=== PATIENT | female | born 1985 | race American Indian/Alaskan Native ===

== ENCOUNTER 2020-08-26 12:33 | Outpatient (CLI) | payer BC, MEDICAID ==
[2020-08-26 13:10] VITALS: BP 124/68
[2020-08-26] MEDS ORDERED: LACTATED RINGERS 1,000 ML IV SCH (13:45)
[2020-08-26 14:17] LABS: Bacteria,Urine 1+ /HPF (Negative); Bilirubin,Urine NEG (Negative); Blood,Urine NEG (Negative); Color,Urine Yellow (Yellow); Mucus,Urine 2+ /HPF; Urobilinogen,Urine < 2.0 mg/dL (<2.0)
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
== END 2020-08-26 17:00 | disposition home or self-care (01) ==
LOC: TRG 12:33 → APU 12:36 → TRG 17:00
PROVIDERS: ATTEND Obstetrics & Gynecology
DX: Z34.93 Encounter for supervision of normal pregnancy, unspecified, third trimester (principal); Z3A.35 35 weeks gestation of pregnancy
CPT/HCPCS: 59025; 76815; 76819; 81001

== ENCOUNTER 2020-09-08 20:32 | Inpatient (IN) | payer BC, MEDICAID ==
[2020-09-08] MEDS ORDERED: OXYTOCIN 10 UNIT/1 ML INJ IM PRN (21:52)
[2020-09-08] MEDS ORDERED: LOPERAMIDE 2 MG CAP PO PRN (21:52)
[2020-09-08] MEDS ORDERED: LIDOCAINE (2%) 20 MG/1 ML VIAL 20 ML MDV INFILTRATI ONE (21:52)
[2020-09-08] MEDS ORDERED: MINERAL OIL 30 ML ORAL LIQD PO PRN (21:52)
[2020-09-08] MEDS ORDERED: ePHEDrine SULFATE 50 MG/1 ML INJ IV PRN (21:52)
[2020-09-08] MEDS ORDERED: CARBOPROST TROMETHAMINE 250 MCG/1 ML INJ IM PRN (21:52)
[2020-09-08] MEDS ORDERED: AMPICILLIN/NS 2 GM/100 ML 2 GM/100 ML BAG IV ONE (21:52)
[2020-09-08] MEDS ORDERED: NALOXONE 0.4 MG/1 ML INJ IV PRN (21:52)
[2020-09-08] MEDS ORDERED: TERBUTALINE 1 MG/1 ML INJ SUB-Q PRN (21:52)
[2020-09-08] MEDS ORDERED: BUTORPHANOL 2 MG/1 ML INJ IV PRN ×2 (21:52)
[2020-09-08] MEDS ORDERED: miSOPROStol 200 MCG TAB PR PRN (21:52)
[2020-09-08] MEDS ORDERED: ONDANSETRON 4 MG/2 ML INJ IV PRN (21:52)
[2020-09-08] MEDS ORDERED: OXYTOCIN DRIP 30 UNITS/500 ML BAG IV SCH (22:00)
--- NOTE | 2020-09-08 22:01 | History and Physical Report ---
History of Present Illness Date of examination: 09/08/20 Date of admission: 09/08/20 20:32 Chief complaint: scheduled induction History of present illness: Pt is a 35 year old -[place] female primigravida MONI 09/29/20 at 37w0d who presents for scheduled induction of labor secondary to gestational hypertension. She denies contractions, vaginal bleeding or leakage of fluid. She has had care at [facility] since 15 wks with comanagement by MFM secondary to morbid obesity, advanced maternal age, and glucose intolerance. She is GBS positive. Past History Past Medical History: hypertension (gestational hypertension per HPI ), other (morbid obesity ) Past Surgical History: other (eye surgery at age 2; obesity) Family/Genetic History: other (Rheumatoid Arthritis ) Social history: no significant social history - Obstetrical History Expected Date of Delivery: 09/29/20 Actual Gestation: 37 Week(s) 0 Day(s) : 1 Medications and Allergies Allergies Allergy/AdvReac Type Severity Reaction Status Date / Time No Known Allergies Allergy Unverified 08/26/20 13:33 Home Medications Medication Instructions Recorded Confirmed Last Taken Type Pnv No.121/Iron/Folic Acid 1 tab PO DAILY 09/08/20 09/08/20 09/08/20 History [ Multivitamin Tablet] Active Meds: Active Medications Dinoprostone (Dinoprostone 10 Mg Vag Supp) 10 mg VG ONCE ONE Stop: 09/08/20 22:53 Review of Systems All systems: negative - Vital Signs Vital signs: Vital Signs Pulse BP 126 H 140/73 09/08/20 20:57 09/08/20 20:57 Temp Pulse Resp BP Pulse Ox 98.6 F 126 H 18 140/73 09/08/20 21:16 09/08/20 20:57 09/08/20 21:16 09/08/20 20:57 - Physical Exam Breasts: Positive: deferred Abdomen: Positive: soft (obese gravid ) Uterus: Positive: enlarged (gravid ) Extremities: Positive: edema (trace ) - Obstetrical FHR: auscultation normal Uterine Contraction Monitor Mode: External Uterine Contraction Pattern: Absent Uterine Tone Measurement Phase: Resting Results All other labs normal. Assessment and Plan A: IUP at 37w0d Gestational Hypertension Morbid Obesity Advanced Maternal Age Glucose Intolerance GBS Positive P: Admit to labor and delivery Routine admission and PIH labs Cervical ripening with cervidil Ampicillin for GBS prophylaxis Closely monitor maternal and status
[2020-09-08 22:26] LABS: Hematocrit 34.3 % (30.3-42.9); Hemoglobin 11.6 gm/dl (10.1-14.3); Mean Corpuscular HGB Conc 34 % (30-34); Mean Corpuscular Volume 86 fl (79-97); Platelet Count 245 K/mm3 (140-440); Red Blood Count 3.98 M/mm3 (3.65-5.03); Red Cell Distribution Width 15.4 % (13.2-15.2)
[2020-09-08 22:43] LABS: Alanine Aminotransferase 26 units/L (7-56); Uric Acid 3.3 mg/dL (3.5-7.6)
[2020-09-08] MEDS ORDERED: DINOPROSTONE 10 MG VAG SUPP VG ONE ×2 (22:52→23:52)
[2020-09-08] MEDS: LACTATED RINGERS 1,000 ML IV SCH (23:30)
[2020-09-09] MEDS ORDERED: AMPICILLIN/NS 1 GM/50 ML 1 GM/50 ML BAG IV SCH (02:00)
[2020-09-09] MEDS: LACTATED RINGERS 1,000 ML IV SCH ×2 (07:36→18:39)
[2020-09-09] MEDS: miSOPROStol 25 MCG TAB VG SCH ×2 (13:10→17:26)
--- NOTE | 2020-09-09 18:40 | Progress Note ---
Assessment and Plan - Patient Problems (1) Gestational hypertension Current Visit: Yes Status: Acute Plan to address problem: Continue induction as scheduled Subjective - Subjective Date of service: 09/09/20 Interval history: 35-year-old G1, P0 at 37+1 weeks admitted for induction of labor for gestational hypertension. The patient received Cervidil overnight and has currently been transitioned to Cytotec. She has not had any cervical change. Patient reports: no new complaints, no loss of fluid Objective - Vital Signs Vital Signs: Vital Signs - 12hr 09/09/20 09/09/20 09/09/20 07:23 07:25 18:30 Temperature 97.8 F Pulse Rate 94 H 78 78 Respiratory 20 Rate Blood Pressure 103/56 133/87 Blood Pressure 103/56 [Right] O2 Sat by Pulse 100 Oximetry - Labs Labs: Abnormal Labs 09/08/20 09/08/20 22:15 22:15 RDW 15.4 H Creatinine 0.5 L Uric Acid 3.3 L AST 51 H Lactate Dehydrogenase 534 H Laboratory Results - last 24 hr 09/08/20 09/08/20 09/08/20 22:15 22:15 22:15 WBC 10.9 RBC 3.98 Hgb 11.6 Hct 34.3 MCV 86 MCH 29 MCHC 34 RDW 15.4 H Plt Count 245 Creatinine 0.5 L Estimated GFR > 60 Uric Acid 3.3 L AST 51 H ALT 26 Lactate Dehydrogenase 534 H Syphilis IgG Antibody Nonreactive Coronavirus (PCR) Blood Type Antibody Screen 09/08/20 09/09/20 22:15 09:25 WBC RBC Hgb Hct MCV MCH MCHC RDW Plt Count Creatinine Estimated GFR Uric Acid AST ALT Lactate Dehydrogenase Syphilis IgG Antibody Coronavirus (PCR) Negative Blood Type B POSITIVE Antibody Screen Negative
--- NOTE | 2020-09-09 19:28 | Anesthesia Consultation ---
Anesthesia Consult and Med Hx Date of service: 09/09/20 - Airway Anesthetic Teeth Evaluation: Good ROM Head & Neck: Adequate Mental/Hyoid Distance: Adequate Mallampati Class: Class II Intubation Access Assessment: Probably Good - Pulmonary Exam CTA: Yes - Cardiac Exam Cardiac Exam: RRR - Pre-Operative Health Status ASA Pre-Surgery Classification: ASA3 Proposed Anesthetic Plan: Epidural - Cardiovascular System Hx Hypertension: Yes - Central Nervous System Hx Seizures: No Hx Psychiatric Problems: No - Endocrine Hx Renal Disease: No Hx Hypothyroidism: No Hx Hyperthyroidism: No - Hematic Hx Anemia: No Hx Sickle Cell Disease: No - Other Systems Hx Alcohol Use: No Hx Obesity: Yes
[2020-09-09] MEDS ORDERED: NALOXONE 2 MG/2 ML INJ IV PRN (19:30)
[2020-09-09] MEDS ORDERED: ePHEDrine SULFATE 50 MG/1 ML INJ IV PRN (19:30)
[2020-09-09] MEDS ORDERED: fentaNYL-BUPIV 2 MCG/ML-0.125% 200 MCG/100 ML BAG EPIDURAL SCH (20:00)
[2020-09-09] MEDS: OXYTOCIN DRIP 30 UNITS/500 ML BAG IV SCH (23:00)
[2020-09-10] MEDS: LACTATED RINGERS 1,000 ML IV SCH ×2 (10:15→19:25)
--- NOTE | 2020-09-10 10:23 | Progress Note ---
Assessment and Plan Day 2 of induction at 37 weeks for gestational hypertension. No cervical change as yet. Blood pressure remains in normal range. Continue on low dose pitocin regimen. Subjective - Subjective Date of service: 09/10/20 Principal diagnosis: gestational hypertension Patient reports: contractions, no new complaints, no loss of fluid Objective - Vital Signs Vital Signs: Vital Signs - 12hr 09/09/20 09/10/20 09/10/20 23:04 00:00 01:49 Temperature 98.2 F Pulse Rate 76 72 Respiratory 18 Rate Blood Pressure 127/60 114/53 Blood Pressure [Right] 09/10/20 09/10/20 09/10/20 04:00 06:13 07:30 Temperature 98.2 F 98.1 F Pulse Rate 76 80 Respiratory 18 16 Rate Blood Pressure 126/67 Blood Pressure 128/55 [Right] 09/10/20 07:35 Temperature Pulse Rate 84 Respiratory Rate Blood Pressure 128/55 Blood Pressure [Right] - Exam Breasts: deferred Lungs: Clear to auscultation, Normal air movement Abdomen: Present: normal appearance, soft, normal bowel sounds Uterus: Present: normal, firm FHR: auscultation normal Cervical Dilatation: 1 Cervical Effacement Percentage: 40 station: -3 Uterine Contraction Pattern: Regular Uterine Contraction Intensity: Mild - Labs Labs: Abnormal Labs 09/08/20 09/08/20 22:15 22:15 RDW 15.4 H Creatinine 0.5 L Uric Acid 3.3 L AST 51 H Lactate Dehydrogenase 534 H Laboratory Results - last 24 hr 09/09/20 09:25 Coronavirus (PCR) Negative
[2020-09-11] MEDS: fentaNYL 100 MCG/2 ML INJ IV PRN ×2 (00:12→03:11)
[2020-09-11] MEDS: LACTATED RINGERS 1,000 ML IV SCH ×4 (03:11→11:43)
[2020-09-11] MEDS: OXYTOCIN DRIP 30 UNITS/500 ML BAG IV SCH (07:25)
--- NOTE | 2020-09-11 08:52 | Progress Note ---
Subjective - Subjective Date of service: 09/11/20 Principal diagnosis: gestational hypertension Interval history: AROM CLEAR FSE/IUPC placed cervix 1cm/80%/-2 plan for early epidural plan for oxytocin per protocol GBS prophylaxis CFM Maternal/ well being reassuring overall Cammie Hastings MD Patient reports: contractions, no new complaints, no loss of fluid Objective - Vital Signs Vital Signs: Vital Signs - 12hr 09/10/20 09/10/20 09/10/20 20:51 20:56 21:01 Temperature Pulse Rate 80 83 87 Respiratory Rate Blood Pressure O2 Sat by Pulse 99 99 98 Oximetry 09/10/20 09/10/20 09/10/20 21:06 21:11 21:16 Temperature Pulse Rate 83 86 77 Respiratory Rate Blood Pressure O2 Sat by Pulse 97 99 99 Oximetry 09/10/20 09/10/20 09/10/20 21:21 21:26 22:34 Temperature Pulse Rate 82 85 89 Respiratory Rate Blood Pressure O2 Sat by Pulse 99 98 99 Oximetry 09/10/20 09/10/20 09/10/20 22:39 22:44 22:49 Temperature Pulse Rate 86 98 H 96 H Respiratory Rate Blood Pressure O2 Sat by Pulse 99 97 99 Oximetry 09/10/20 09/10/20 09/10/20 22:54 22:59 23:04 Temperature Pulse Rate 87 84 91 H Respiratory Rate Blood Pressure O2 Sat by Pulse 99 99 98 Oximetry 09/10/20 09/10/20 09/10/20 23:09 23:14 23:19 Temperature Pulse Rate 95 H 83 88 Respiratory Rate Blood Pressure O2 Sat by Pulse 99 98 99 Oximetry 09/10/20 09/10/20 09/10/20 23:24 23:29 23:34 Temperature Pulse Rate 85 91 H 89 Respiratory Rate Blood Pressure O2 Sat by Pulse 98 98 97 Oximetry 09/10/20 09/10/20 09/10/20 23:39 23:44 23:49 Temperature Pulse Rate 92 H 107 H 98 H Respiratory Rate Blood Pressure O2 Sat by Pulse 99 99 96 Oximetry 09/10/20 09/10/20 09/11/20 23:54 23:59 00:04 Temperature Pulse Rate 96 H 97 H 91 H Respiratory Rate Blood Pressure O2 Sat by Pulse 92 98 99 Oximetry 09/11/20 09/11/20 09/11/20 00:09 00:14 00:19 Temperature Pulse Rate 88 80 83 Respiratory Rate Blood Pressure O2 Sat by Pulse 99 94 94 Oximetry 09/11/20 09/11/20 09/11/20 00:24 00:29 00:34 Temperature Pulse Rate 79 78 81 Respiratory Rate Blood Pressure O2 Sat by Pulse 95 93 94 Oximetry 09/11/20 09/11/20 09/11/20 00:39 00:44 00:49 Temperature Pulse Rate 75 74 93 H Respiratory Rate Blood Pressure O2 Sat by Pulse 95 95 96 Oximetry 09/11/20 09/11/20 09/11/20 00:54 00:59 01:04 Temperature Pulse Rate 76 80 79 Respiratory Rate Blood Pressure O2 Sat by Pulse 94 96 96 Oximetry 09/11/20 09/11/20 09/11/20 01:09 01:14 01:19 Temperature 98.1 F Pulse Rate 74 72 88 Respiratory 18 Rate Blood Pressure 136/78 O2 Sat by Pulse 96 95 98 Oximetry 09/11/20 09/11/20 09/11/20 01:24 01:29 01:34 Temperature Pulse Rate 78 94 H 73 Respiratory Rate Blood Pressure O2 Sat by Pulse 95 96 96 Oximetry 09/11/20 09/11/20 09/11/20 01:39 01:46 01:51 Temperature Pulse Rate 96 H 100 H 87 Respiratory Rate Blood Pressure O2 Sat by Pulse 95 98 98 Oximetry 09/11/20 09/11/20 09/11/20 01:56 02:01 02:06 Temperature Pulse Rate 85 80 79 Respiratory Rate Blood Pressure O2 Sat by Pulse 97 99 97 Oximetry 09/11/20 09/11/20 09/11/20 02:11 02:16 02:21 Temperature Pulse Rate 83 85 64 Respiratory Rate Blood Pressure O2 Sat by Pulse 97 99 98 Oximetry 09/11/20 09/11/20 09/11/20 02:26 02:31 02:36 Temperature Pulse Rate 70 81 79 Respiratory Rate Blood Pressure O2 Sat by Pulse 97 95 96 Oximetry 09/11/20 09/11/20 09/11/20 02:41 02:46 02:51 Temperature Pulse Rate 77 73 85 Respiratory Rate Blood Pressure O2 Sat by Pulse 96 97 96 Oximetry 09/11/20 09/11/20 09/11/20 02:56 03:01 03:06 Temperature Pulse Rate 98 H 71 72 Respiratory Rate Blood Pressure O2 Sat by Pulse 95 99 98 Oximetry 09/11/20 09/11/20 09/11/20 03:11 03:16 03:21 Temperature Pulse Rate 86 78 79 Respiratory Rate Blood Pressure O2 Sat by Pulse 98 96 95 Oximetry 09/11/20 09/11/20 09/11/20 03:26 03:31 03:36 Temperature Pulse Rate 79 77 85 Respiratory Rate Blood Pressure O2 Sat by Pulse 94 96 96 Oximetry 09/11/20 09/11/20 09/11/20 03:41 03:46 03:51 Temperature Pulse Rate 78 78 78 Respiratory Rate Blood Pressure O2 Sat by Pulse 96 97 97 Oximetry 09/11/20 09/11/20 09/11/20 03:56 04:01 04:06 Temperature Pulse Rate 75 74 73 Respiratory Rate Blood Pressure O2 Sat by Pulse 97 97 97 Oximetry 09/11/20 09/11/20 09/11/20 04:11 04:16 04:21 Temperature Pulse Rate 73 77 76 Respiratory Rate Blood Pressure O2 Sat by Pulse 95 96 97 Oximetry 09/11/20 09/11/20 09/11/20 04:26 04:31 04:36 Temperature Pulse Rate 95 H 85 85 Respiratory Rate Blood Pressure O2 Sat by Pulse 93 95 96 Oximetry 09/11/20 09/11/20 09/11/20 04:41 04:46 04:51 Temperature Pulse Rate 76 72 84 Respiratory Rate Blood Pressure O2 Sat by Pulse 97 98 98 Oximetry 09/11/20 09/11/20 09/11/20 04:56 04:57 05:01 Temperature 98.1 F Pulse Rate 86 77 89 Respiratory 18 Rate Blood Pressure 117/65 O2 Sat by Pulse 99 98 Oximetry 09/11/20 09/11/20 09/11/20 05:06 05:11 05:16 Temperature Pulse Rate 70 76 77 Respiratory Rate Blood Pressure O2 Sat by Pulse 98 98 98 Oximetry 09/11/20 09/11/20 09/11/20 05:21 05:26 05:31 Temperature Pulse Rate 94 H 76 80 Respiratory Rate Blood Pressure O2 Sat by Pulse 98 97 98 Oximetry 09/11/20 09/11/20 09/11/20 05:36 05:41 05:46 Temperature Pulse Rate 78 91 H 78 Respiratory Rate Blood Pressure O2 Sat by Pulse 96 99 99 Oximetry 06/09/11/20 09/11/20 05:51 05:56 06:01 Temperature Pulse Rate 91 H 105 H 89 Respiratory Rate Blood Pressure O2 Sat by Pulse 98 99 99 Oximetry 09/11/20 09/11/20 09/11/20 06:06 06:16 06:21 Temperature Pulse Rate 86 102 H 90 Respiratory Rate Blood Pressure O2 Sat by Pulse 100 99 99 Oximetry 09/11/20 09/11/20 09/11/20 06:26 06:31 06:36 Temperature Pulse Rate 117 H 79 91 H Respiratory Rate Blood Pressure O2 Sat by Pulse 98 99 98 Oximetry 09/11/20 09/11/20 09/11/20 06:41 06:46 06:51 Temperature Pulse Rate 92 H 78 85 Respiratory Rate Blood Pressure O2 Sat by Pulse 100 98 99 Oximetry 09/11/20 09/11/20 09/11/20 06:56 07:01 07:06 Temperature Pulse Rate 103 H 93 H 84 Respiratory Rate Blood Pressure O2 Sat by Pulse 97 100 99 Oximetry 09/11/20 09/11/20 09/11/20 07:11 07:16 07:21 Temperature Pulse Rate 88 79 76 Respiratory Rate Blood Pressure O2 Sat by Pulse 98 97 97 Oximetry 09/11/20 09/11/20 09/11/20 07:26 07:31 07:36 Temperature Pulse Rate 95 H 80 82 Respiratory Rate Blood Pressure O2 Sat by Pulse 98 97 99 Oximetry 09/11/20 09/11/20 09/11/20 07:41 07:46 07:51 Temperature Pulse Rate 85 86 81 Respiratory Rate Blood Pressure O2 Sat by Pulse 99 99 97 Oximetry 09/11/20 09/11/20 09/11/20 07:56 08:01 08:06 Temperature Pulse Rate 93 H 87 80 Respiratory Rate Blood Pressure O2 Sat by Pulse 98 99 97 Oximetry 09/11/20 09/11/20 09/11/20 08:11 08:16 08:21 Temperature 98.4 F Pulse Rate 88 85 88 Respiratory Rate Blood Pressure O2 Sat by Pulse 98 99 98 Oximetry 09/11/20 09/11/20 09/11/20 08:26 08:31 08:36 Temperature Pulse Rate 92 H 100 H 85 Respiratory Rate Blood Pressure O2 Sat by Pulse 98 99 99 Oximetry 09/11/20 09/11/20 08:41 08:46 Temperature Pulse Rate 94 H 88 Respiratory Rate Blood Pressure O2 Sat by Pulse 98 100 Oximetry - Labs Labs: Abnormal Labs 09/08/20 09/08/20 22:15 22:15 RDW 15.4 H Creatinine 0.5 L Uric Acid 3.3 L AST 51 H Lactate Dehydrogenase 534 H
[2020-09-11] MEDS ORDERED: NALOXONE 2 MG/2 ML INJ IV PRN (11:00)
[2020-09-11] MEDS ORDERED: fentaNYL-BUPIV 2 MCG/ML-0.125% 200 MCG/100 ML BAG EPIDURAL SCH (11:00)
[2020-09-11] MEDS ORDERED: ePHEDrine SULFATE 50 MG/1 ML INJ IV PRN (11:00)
--- NOTE | 2020-09-11 11:26 | Progress Note ---
Labor Epidural - Labor Epidural Start Time: 10:13 Stop Time: 10:45 Performed by:: CHAD FREEMAN Procedure: Patient is requesting a laboring epidural for laboring pain. Patient IDed, H&P reviewed, all questions and concerns were answered, and consent was signed. Timeout was performed at bedside. Patient in sitting position. Sterile prep and drape was performed. [3] ml of 1% lidocaine skin wheal at L[3]- L [4]. 18- gauge Tuohy epidural needle was advanced to loss of resistance with saline technique. Negative CSF negative blood. Epidural catheter advanced to [12] centimeters. [NEGATIVE] Aspiration [NEGATIVE] test dose. 3 attempts, Sterile dressing applied. Patient tolerated procedure.
--- NOTE | 2020-09-11 17:52 | Event Note ---
Date: 09/11/20 intolerance to labor with oxytocin remote from delivery oxytocin on hold, plan for operative delivery informed consent Cammie Hastings MD
[2020-09-11] MEDS ORDERED: LIDOCAINE MPF (2%) 20 MG/1 ML VIAL 5 ML ONE ×2 (19:14)
[2020-09-11] MEDS ORDERED: METOCLOPRAMIDE 10 MG/2 ML INJ ONE (19:31)
[2020-09-11] MEDS ORDERED: FAMOTIDINE 20 MG/2 ML INJ IV ONE ×2 (19:31→19:32)
[2020-09-11] MEDS ORDERED: BICITRA ORAL LIQD 30ML ONE (19:31)
[2020-09-11] MEDS ORDERED: BICITRA ORAL LIQD 30ML PO ONE (19:32)
[2020-09-11] MEDS ORDERED: METOCLOPRAMIDE 10 MG/2 ML INJ IV ONE (19:32)
[2020-09-11] MEDS ORDERED: SODIUM CHLORIDE 0.9% IRR 1,500 ML BOTTLE IR ONE (20:20)
[2020-09-11] MEDS ORDERED: WATER FOR IRRIG STERILE 1,500 ML BOTTLE IR ONE (20:20)
--- NOTE | 2020-09-11 21:20 | Post Anesthesia Evaluation ---
- Post Anesthesia Evaluation Patient Participated: Yes Airway Patent: Yes Stable Respiratory Function: Yes Nausea/Vomiting: No Temp > 96.8F: Yes Pain Manageable: Yes Adequeate Hydration: Yes Anesthesia Complications: No Block Receding Appropriately: Yes Patient on Ventilator: No
[2020-09-11] MEDS ORDERED: MORPHINE 4 MG/1 ML INJ IV PRN (21:35)
[2020-09-11] MEDS ORDERED: IBUPROFEN 600 MG TAB PO PRN (21:35)
[2020-09-11] MEDS ORDERED: LANOLIN/ZINC/DIMETHICONE (LANSINOH) 7 GM TP PRN (21:35)
[2020-09-11] MEDS ORDERED: NALOXONE 0.4 MG/1 ML INJ IV PRN (21:35)
[2020-09-11] MEDS ORDERED: WITCH HAZEL/ GLYCERIN PAD TP PRN (21:35)
[2020-09-11] MEDS ORDERED: KETOROLAC 30 MG/1 ML INJ IV PRN (21:35)
[2020-09-11] MEDS ORDERED: MORPHINE 2 MG/1 ML INJ IV PRN (21:35)
--- NOTE | 2020-09-11 21:39 | Procedure Note ---
OB Delivery Note - Delivery Date of Delivery: 09/11/20 Surgeon: LINH BUSTOS - Section Preop diagnosis: nonreassuring FHR tracing Postop diagnosis: same section procedure: primary low transverse Disposition: PACU Complications: none Narrative: Preop diagnosis: IUP at 37.2 weeks, nonreassuring heart tones with failed induction of labor Postop diagnosis: Same,delivered Procedure: Primary low transverse section via Pfannenstiel incision Surgeon: Dr. Linh Bustos Anesthesia spinal Complications none EBL 600ml IV fluids 1000mL Urine output 150 mL, clear Drains Coyle to gravity Findings: Viable female with weight 3088gms and 8/9, normal uterus tubes and ovaries bilaterally Procedure: Patient was consented in room 2006, taken to the operating room where adequate epidural anesthesia was confirmed. She was then placed in the dorsal supine position with a leftward tilt. The abdomen was prepped and draped in a sterile fashion, and a timeout was verified. A Pfannenstiel skin incision was made with a scalpel taken down to the underlying structures and the fascia was incised in the midline. The incision was extended laterally with curved Garrido scissors, the superior and inferior aspects of the fascial incisions were grasped with Coleman clamps and the rectus muscles dissected sharply. The abdomen was entered bluntly in the midline carried down inferiorly with good visualization of the bladder. The Lee was then inserted atraumatically. Bladder blade was inserted, the uterine incision was made sharply with a scalpel. The inferior and superior aspect of the uterine incisions were extended bluntly, the baby's head was delivered atraumatically. The remainder of the delivery was uncomplicated,no nuchal cord noted at delivery. The cord was clamped and cut and baby handed to waiting NICU team. An intact placenta with three-vessel cord delivered manually. The uterus was then cleared of all clots and debris and the uterus exteriorized. The uterine incision was closed with 2 layers of 0 chromic with excellent hemostasis. The abdomen was then irrigated with warm normal saline and the uterus placed back into the abdomen atraumatically. A second look at the uterine incision and ensured hemostasis. The peritoneum was closed with 3-0 Vicryl, the rectus muscles approximated with 3-0 Vicryl, and the fascia closed with 0 Vicryl in the usual fashion. The subcuticular structures were closed with interrupted sutures of 3-0 Vicryl and the skin closed with tita. A pressure dressing was applied. All sponge needle and instrument counts were correct x2. There were no complications. Mom to the recovery area and baby to NICU in stable condition. EBL 600mL Cammie Bustos MD - A at 1 minute: 8 at 5 minutes: 9 Infant Gender: Female
[2020-09-11] MEDS: KETOROLAC 30 MG/1 ML INJ IV PRN (23:50)
[2020-09-12] MEDS: KETOROLAC 30 MG/1 ML INJ IV PRN (07:31)
[2020-09-12] MEDS: HYDROcodone/ACETAMINOPHEN 5-325 MG TAB PO PRN ×3 (09:41→22:39)
[2020-09-12 11:40] LABS: Hematocrit 32.3 % (30.3-42.9); Hemoglobin 10.9 gm/dl (10.1-14.3)
[2020-09-12] MEDS: IBUPROFEN 800 MG TAB PO PRN ×2 (12:12→18:35)
--- NOTE | 2020-09-12 18:09 | Progress Note ---
Assessment and Plan A: POD#1 s/p primary at 37 wks Gestational Hypertension Morbid Obesity P: Routine postop care Monitor BP curve Subjective - Subjective Date of service: 09/12/20 Principal diagnosis: gestational hypertension; morbid obesity Interval history: Pt doing well without complaints. Patient reports: appetite normal, voiding normally, pain well controlled, ambulating normally [place]: doing well Objective - Vital Signs Latest vital signs: Vital Signs Temp Pulse Resp BP Pulse Ox 09/12/20 16:51 97.5 F L 80 17 115/79 98 09/12/20 12:15 97.8 F 83 18 111/57 100 09/12/20 07:47 97.9 F 89 16 110/55 97 09/12/20 04:53 98.6 F 97 H 20 125/57 95 09/11/20 22:56 97.4 F L 90 20 125/65 99 09/11/20 19:41 92 H 98 09/11/20 19:36 88 98 09/11/20 19:31 99 H 99 09/11/20 19:26 103 H 100 09/11/20 19:21 102 H 99 09/11/20 19:16 97 H 100 09/11/20 19:11 129 H 99 09/11/20 19:06 105 H 99 09/11/20 19:01 106 H 99 09/11/20 18:58 96 H 120/58 09/11/20 18:56 115 H 99 09/11/20 18:51 94 H 99 09/11/20 18:46 102 H 99 09/11/20 18:41 100 H 99 09/11/20 18:36 96 H 100 09/11/20 18:31 95 H 100 09/11/20 18:28 92 H 130/59 09/11/20 18:26 86 100 09/11/20 18:21 92 H 100 09/11/20 18:16 94 H 100 09/11/20 18:11 90 100 Intake and Output 09/12/20 09/12/20 09/12/20 06:59 14:59 22:59 Intake Total 480 Output Total 700 700 100 Balance -220 -700 -100 Intake: Oral 480 Output: Urine 700 700 100 Indwelling Catheter 700 700 100 Other: Total, Intake Amount 240 Total, Output Amount 700 300 100 - Exam Breasts: Present: deferred Abdomen: Present: soft (obese ) Uterus: Present: fundal height at umbilicus Extremities: Present: edema (1+) Incision: Present: dressed
[2020-09-13] MEDS: IBUPROFEN 800 MG TAB PO PRN (03:53)
--- NOTE | 2020-09-13 10:58 | Progress Note ---
Assessment and Plan A: POD#2 s/p primary section at 37 wks secondary to gestational hypertension Morbid Obesity P: Discharge home today with follow up within 7 days for staple removal and incision check Subjective - Subjective Date of service: 09/13/20 Principal diagnosis: gestational hypertension; morbid obesity Interval history: Pt doing had a bowel movement overnight and is asking to go home. Denies headache, blurry vision or RUQ pain. Patient reports: appetite normal, voiding normally, pain well controlled, flatus, bowel movement, ambulating normally [place]: doing well Objective - Vital Signs Latest vital signs: Vital Signs Temp Pulse Resp BP Pulse Ox 09/13/20 08:29 97.6 F 84 18 132/89 97 09/13/20 03:53 12 09/13/20 02:36 98.0 F 81 18 116/71 96 09/12/20 22:39 12 09/12/20 22:34 98.3 F 96 H 18 137/85 99 09/12/20 16:51 97.5 F L 80 17 115/79 98 09/12/20 12:15 97.8 F 83 18 111/57 100 Intake and Output 09/12/20 09/13/20 09/13/20 22:59 06:59 14:59 Intake Total 240 240 Output Total 450 Balance -210 240 Intake: Intake, Free Water 240 240 Output: Urine 450 Void 450 Other: Total, Output Amount 350 # Voids Void 1 1 # Bowel Movements 1 - Exam Breasts: Present: deferred Abdomen: Present: soft (obese ) Uterus: Present: fundal height at umbilicus Incision: Present: dressed
--- NOTE | 2020-09-13 11:01 | Discharge Summary ---
Providers - Providers Date of Admission: 09/08/20 20:32 Date of discharge: 09/13/20 Attending physician: JULIO CANTRELL Primary care physician: JULIO CANTRELL Hospitalization Reason for admission: induction of labor Delivery: Procedure: section, primary low transverse Procedure details: Please see operative report Episiotomy: none Laceration: none Incision: intact Other procedures: none complications: none Discharge diagnosis: IUP at term delivered [place] baby: female Hospital course: This patient was admitted for induction of labor at 37 weeks secondary to gestational hypertension. She ultimately went on to have a primary section due to failed induction which she tolerated well. Her postoperative course was uncomplicated and she met discharge criteria on postoperative day #2. She will follow-up within 7 days for blood pressure check and staple removal. Condition at discharge: Stable Disposition: DC- TO HOME OR SELFCARE - Discharge Diagnoses (1) Morbid obesity Status: Acute (2) Gestational hypertension Status: Acute Qualifiers: Trimester: third trimester Qualified Code(s): O13.3 - Gestational [-induced] hypertension without significant proteinuria, third trimester Plan - Discharge Medications Prescriptions: Ibuprofen [Motrin] 800 mg PO Q8HR PRN #30 tablet PRN Reason: Pain, Moderate (4-6) oxyCODONE /ACETAMINOPHEN [Percocet 5/325] 1 tab PO Q6HR PRN #40 tablet PRN Reason: Pain - Provider Discharge Summary Activity: routine, no sex for 6 weeks, no heavy lifting 4 weeks, no strenuous exercise Diet: routine Instructions: routine Additional instructions: [] Smoking cessation referral if applicable(refer to patient education folder for contact #) [] Refer to [facility]'s [facility] Booklet Call your doctor immediately for: * Fever > 100.5 * Heavy vaginal bleeding ( >1 pad per hour) * Severe persistent headache * Shortness of breath * Reddened, hot, painful area to leg or breast * Drainage or odor from incision. * Keep incision clean and dry at all times and follow doctor's instructions regarding bathing/showering - Follow up plan Follow up: JULIO CANTRELL MD [Primary Care Provider] - 7 Days
[2020-09-13] MEDS: HYDROcodone/ACETAMINOPHEN 5-325 MG TAB PO PRN (11:27)
[2020-09-13 15:21] VITALS: BP 120/63
== END 2020-09-13 14:03 | disposition home or self-care (01) | DRG 788 ==
LOC: LD 20:32 → OB 09-11 22:45
PROVIDERS: ADMIT Obstetrics & Gynecology; ATTEND Obstetrics & Gynecology
PROC: 10D00Z1 Extraction of Products of Conception, Low, Open Approach (ICD-10-PCS; principal; 2020-09-11)
PROC: 10H07YZ Insertion of Other Device into Products of Conception, Via Natural or Artificial Opening (ICD-10-PCS; 2020-09-11)
PROC: 3E0P7VZ Introduction of Hormone into Female Reproductive, Via Natural or Artificial Opening (ICD-10-PCS; 2020-09-11)
DX: O13.4 Gestational [pregnancy-induced] hypertension without significant proteinuria, complicating childbirth (principal); O61.9 Failed induction of labor, unspecified; Z3A.37 37 weeks gestation of pregnancy; Z20.822 Contact with and (suspected) exposure to COVID-19; Z37.0 Single live birth; O99.824 Streptococcus B carrier state complicating childbirth; O99.214 Obesity complicating childbirth; E66.01 Morbid (severe) obesity due to excess calories; Z82.61 Family history of arthritis; O76 Abnormality in fetal heart rate and rhythm complicating labor and delivery
CPT/HCPCS: 36415; 59200; 82565; 83615; 84450; 84460; 84550; 85014; 85018; 85027; 86592; 86850; 86900; 86901; 99211; G0378; G0463; J0290; J1885; J2270; J2590; J2765; J3010; J7120; U0003